=== PATIENT | female | born 1985 | race Caucasian/White ===

== ENCOUNTER 2023-07-02 15:45 | Emergency (ER) | payer OTHER ==
[~2023-07-02] VITALS: Ht 162.6 cm; Wt 90.7 kg
[2023-07-02 16:16] VITALS: BP_SYST 117; PULSE 122; RESP 18; TEMP 98.3; O2SAT 98
[2023-07-02 16:52] LABS: BASOPHILS # (AUTO) 0.1 K/uL (0.0-0.2); BASOPHILS % (AUTO) 0.8 % (0.0-2.0); EOSINOPHILS # (AUTO) 0.2 K/uL (0.0-0.4); EOSINOPHILS % (AUTO) 1.3 % (0.0-4.0); HEMATOCRIT 24.9 % (36-48); HEMOGLOBIN 7.9 g/dL (12.0-16.0); LYMPHOCYTES # (AUTO) 2.4 K/uL (1.0-5.5); LYMPHOCYTES % (AUTO) 19.3 % (20.5-51.5); MEAN CORPUSCULAR HEMOGLOBIN 25 pg (27-31); MEAN CORPUSCULAR HGB CONC 32 % (32-36); MEAN CORPUSCULAR VOLUME 79 fL (79.0-98.0); MONOCYTES # (AUTO) 0.9 K/uL (0.0-1.0); MONOCYTES % (AUTO) 7.1 % (1.7-9.3); NEUTROPHILS % (AUTO) 71.5 % (40.0-70.0); PLATELET COUNT (AUTO) 286 K/uL (130-430); RED BLOOD CELL COUNT(AUTO) 3.13 MIL/uL (4.2-6.2); RED CELL DISTRIBUTION WIDTH 22.1 % (9.0-15.0); WHITE BLOOD COUNT (AUTO) 12.6 K/uL (4.8-10.8)
[2023-07-02 17:02] LABS: ANION GAP 10 (5-15); CALCIUM 7.4 mg/dL (8.4-11.0); CARBON DIOXIDE 23 mmol/L (23-29); CHLORIDE 101 mmol/L (98-107); CREATININE 0.87 mg/dL (0.55-1.30); GFR AFRICAN AMERICAN 93 mL/min (>90); GFR NON AFRICAN-AMERICAN 77 mL/min (>90); GLUCOSE 111 mg/dL (74-106); POTASSIUM 3.1 mmol/L (3.5-5.1); SODIUM SERUM 134 mmol/L (136-145); UREA NITROGEN, BLOOD 8 mg/dL (8-21)
[2023-07-02 17:04] LABS: INR 1.7 (0.8-1.2); PROTHROMBIN TIME 16.7 SECS (9.5-12.5)
[2023-07-02 17:06] LABS: ALANINE AMINOTRANSFERASE 48 U/L (12-78); ALBUMIN 2.1 g/dL (3.4-4.8); AMYLASE 29 U/L (0-100); ASPARTATE AMINOTRANSFERASE 221 U/L (10-37); BILIRUBIN,DIRECT 1.2 mg/dL (0.0-0.3); LIPASE 26 U/L (16-77); TOTAL BILIRUBIN 2.3 mg/dL (0.0-1.0); TOTAL PROTEIN, SERUM 7.2 g/dL (6.4-8.3)
[2023-07-02 17:33] LABS: ACETONE, SERUM NEGATIVE (NEGATIVE)
[2023-07-02] MEDS ORDERED: LIDOCAINE 1%, 20 ML MDV 20 ML ONE (18:47)
[2023-07-02] MEDS ORDERED: PIPERACILLIN/TAZO 4.5GM/DEX-IS 100 ML IV SCH (19:00)
[2023-07-02 19:06] LABS: BILIRUBIN,URINE NEGATIVE (NEGATIVE); BLOOD, URINE NEGATIVE (NEGATIVE); CLARITY/URINE CLEAR (CLEAR); COLOR,URINE YELLOW (YELLOW); GLUCOSE,URINE NEGATIVE (NEGATIVE); KETONES,URINE NEGATIVE (NEGATIVE); LEUKOCYTE ESTERASE ,URINE NEGATIVE (NEGATIVE); NITRITE, URINE NEGATIVE (NEGATIVE); PH,URINE 5.5 (5.0-8.0); PROTEIN URINE NEGATIVE (NEGATIVE); UROBILINOGEN,URINE 0.2 (0.2-1.0)
[2023-07-02] MEDS ORDERED: BACITRACIN 1 GM OINT TP ONE (19:15)
[2023-07-02] MEDS: CEFOTAXIME SODIUM 1 GM VIAL IV ONE (19:25)
[2023-07-02] MEDS ORDERED: PIPERACILLIN/TAZOBACTAM 4.5 GM/VIAL (ZOSYN) IV ONE (19:47)
[2023-07-02] MEDS: PIPERACILLIN/TAZO 4.5GM/DEX-IS 100 ML IV ONE (19:57)
[2023-07-02] MEDS: ACETAMINOPHEN 500 MG TABLET PO ONE (20:03)
[2023-07-02] MEDS ORDERED: VANCOMYCIN HCL 1000 MG/VIAL IV ONE (20:41)
[2023-07-02] MEDS: VANCOMYCIN HCL 1,000 MG in NS 250 ML IV ONE (20:57)
[2023-07-02 22:17] LABS: BF APPEARANCE UNSPUN CLEAR (CLEAR); BODY FLUID COLOR LT YELLOW (LT YELLOW); BODY FLUID SOURCE/ TYPE ASCITES; BODY FLUID TOTAL VOLUME 255 mL; RBC, BODY FLUID 14 /uL; SOURCE/TYPE ,BODY FLUID PARACENTESIS; WBC, BODY FLUID 22 /uL
[2023-07-02 22:18] LABS: LYMPHOCYTES, BODY FLUID 90 %; MONOCYTES,BODY FLUID 4 %; NEUTROPHIL, BODY FLUID 6 %
[2023-07-02 23:19] VITALS: BP_SYST 117; PULSE 128; RESP 27; TEMP 98.1; O2SAT 94
[2023-07-03 17:43] LABS: BODY FLUID GLUCOSE 126 mg/dL; BODY FLUID TOTAL PROTEIN 0.7 g/dL
== END 2023-07-02 23:19 | disposition short-term general hospital (02) ==
LOC: SED 15:45
DX: K74.60 Unspecified cirrhosis of liver (principal); J18.9 Pneumonia, unspecified organism; R18.8 Other ascites; D64.9 Anemia, unspecified; A41.9 Sepsis, unspecified organism; F10.20 Alcohol dependence, uncomplicated; Z79.899 Other long term (current) drug therapy; Y90.6 Blood alcohol level of 120-199 mg/100 ml
CPT/HCPCS: 49083; 99291; 74176; 96365; 71045; 96367; 96366; 82947; 80076; 80048; 82009; 82150; 83690; 84157; 85025; 85610; 85730; 86886; 86900; 86901; 87040; 87086; 89051 ×2; 89060; 36415; 83605; 82397; 81001; 87070; 81003; G0482; J2543 ×2; J3370; J7050; J2001